=== PATIENT | female | born 1945 | race African-American/Black ===

== ENCOUNTER 2017-01-02 12:04 | Emergency (ER) | payer MEDICARE, BC ==
[~2017-01-02] VITALS: Ht 165.1 cm; Wt 68.0 kg
[~2017-01-02 12:04] MED LIST: ASPI-785; AZAT50TA24; HYDR-3735; HYDR1TAB4; SULF500T4
[2017-01-02] MEDS ORDERED: MORPHINE SULFATE 2 MG/ML CPJ (NOT FOR IM USE) IV ONE ×3 (13:00→18:15)
[2017-01-02] MEDS ORDERED: ONDANSETRON HCL 4MG/2ML VIAL IV ONE (13:00)
[2017-01-02] MEDS ORDERED: MORPHINE SULFATE 4 MG/ML CPJ (NOT FOR IM USE) IV ONE ×2 (14:45→16:15)
[2017-01-02 18:49] VITALS: BP 124/66
== END 2017-01-02 19:41 | disposition short-term general hospital (02) ==
LOC: ER 12:08
DX: S32.492A Other specified fracture of left acetabulum, initial encounter for closed fracture (principal); S32.592A Other specified fracture of left pubis, initial encounter for closed fracture; I10 Essential (primary) hypertension; I51.9 Heart disease, unspecified; Z96.659 Presence of unspecified artificial knee joint; Z79.82 Long term (current) use of aspirin; V43.52XA Car driver injured in collision with other type car in traffic accident, initial encounter; Y93.89 Activity, other specified; Y92.488 Other paved roadways as the place of occurrence of the external cause
CPT/HCPCS: 72125; 73522; 73560; 93005; 96374; 96375; 96376; 99285; C1893; J2270; J2405

== ENCOUNTER 2017-02-16 18:24 | Inpatient (IN) | payer MEDICARE, BC ==
[~2017-02-16] VITALS: Ht 165.1 cm; Wt 72.1 kg
[~2017-02-16 18:24] MED LIST changes: +AMLO5TAB4 PO; +ASPI-1159 PO; +GABA-531 PO
[2017-02-16] MEDS ORDERED: NA PHOS,M-B/NA PHOS,DI-BA ENEMA 118ML PR PRN (18:45)
[2017-02-16] MEDS ORDERED: IPRATROPIUM/ALBUTEROL 0.5-3(2.5)MG/3ML NEB HHN PRN (18:45)
[2017-02-16] MEDS ORDERED: DIPHENHYDRAMINE 50MG/ML VIAL IV PRN (18:45)
[2017-02-16] MEDS ORDERED: ONDANSETRON HCL 4MG/2ML VIAL IV PRN (18:55)
[2017-02-16] MEDS ORDERED: CLONIDINE 0.1MG TABLET PO PRN (19:45)
[2017-02-16] MEDS: PHENYTOIN SODIUM EXTENDED 100MG CAPSULE PO SCH (21:42)
[2017-02-16] MEDS: HYDROCODONE/APAP 7.5/325MG 1 TAB TABLET PO PRN (21:48)
[2017-02-17] MEDS: PHENYTOIN SODIUM EXTENDED 100MG CAPSULE PO SCH ×3 (05:21→21:03)
[2017-02-17] MEDS: HYDROCODONE/APAP 7.5/325MG 1 TAB TABLET PO PRN ×3 (06:24→20:03)
[2017-02-18 03:36] LABS: CLARITY URINE CLOUDY (CLEAR); COLOR URINE YELLOW (YELLOW); KETONES URINE NEGATIVE (NEGATIVE); LEUKOCYTE ESTERASE URINE 3+ (NEGATIVE); NITRITE URINE POSITIVE (NEGATIVE); OCCULT BLOOD URINE 1+ (NEGATIVE); PROTEIN URINE NEGATIVE (NEGATIVE); SPECIFIC GRAVITY URINE 1.011 (1.005-1.030); UROBILINOGEN URINE 0.2 E.U./dL (0.2-1.0)
[2017-02-18] MEDS: PHENYTOIN SODIUM EXTENDED 100MG CAPSULE PO SCH (05:32)
[2017-02-18] MEDS: HYDROCODONE/APAP 7.5/325MG 1 TAB TABLET PO PRN ×2 (05:36→12:21)
[2017-02-18] MEDS: LACTULOSE 20G/30ML UDC PO SCH ×3 (13:58→21:00)
[2017-02-18] MEDS: ACETAMINOPHEN 500MG TABLET PO SCH ×2 (13:58→18:24)
[2017-02-18] MEDS: LEVOFLOXACIN 500MG TABLET PO SCH (13:58)
[2017-02-18] MEDS: DOCUSATE SODIUM 100MG CAPSULE PO SCH (17:36)
[2017-02-18] MEDS: POLYETHYLENE GLYCOL 3350 (17GM) 1 DOSE PACK PO SCH (21:19)
[2017-02-18] MEDS: LEVETIRACETAM 500MG TABLET PO SCH (21:20)
[2017-02-18] MEDS: ACETAMINOPHEN 325MG TABLET PO PRN (21:23)
[2017-02-19] MEDS: ACETAMINOPHEN 500MG TABLET PO SCH ×4 (02:09→18:56)
[2017-02-19 06:42] LABS: BASOPHILS % 0.8 % (0.0-2.0); EOSINOPHILS % 4.3 % (0.0-5.0); HEMATOCRIT. 33.1 % (36.0-48.0); HEMOGLOBIN. 11.1 g/dL (12.0-16.0); LYMPHOCYTES % 20.6 % (20.0-50.0); MEAN CORPUSCULAR HEMOGLOBIN 29.6 pg (28.0-32.0); MEAN CORPUSCULAR VOLUME 88.8 fL (81.0-99.0); MEAN PLATELET VOLUME 6.8 fl (7.4-10.4); MONOCYTES % 10.5 % (2.0-8.0); NEUTROPHILS % 63.8 % (40.0-76.0); PLATELET 359 x1000/uL (130-400); RED BLOOD CELL COUNT 3.73 mill/uL (4.2-5.4); RED CELL DISTRIBUTION WIDTH 14.9 % (11.6-14.6)
[2017-02-19 08:00] LABS: FOLIC ACID (FOLATE) SERUM 9.4 ng/mL (>5.38)
[2017-02-19] MEDS: DOCUSATE SODIUM 100MG CAPSULE PO SCH ×3 (08:09→16:58)
[2017-02-19] MEDS: LEVETIRACETAM 500MG TABLET PO SCH ×2 (08:09→21:32)
[2017-02-19 08:12] LABS: CARBON DIOXIDE 29 mEq/L (21-32); CHLORIDE 100 mEq/L (98-107); PHOSPHORUS 3.8 mg/dL (2.5-4.9); TOTAL IRON BINDING CAPACITY 198 ug/dL (250-450)
[2017-02-19] MEDS: HYDROCODONE/APAP 7.5/325MG 1 TAB TABLET PO PRN ×2 (08:12→21:45)
[2017-02-19] MEDS: LEVOFLOXACIN 500MG TABLET PO SCH (10:19)
[2017-02-19] MEDS: FERROUS SULFATE 325MG TABLET PO SCH ×2 (13:35→16:58)
[2017-02-19] MEDS: OXYCODONE HCL 5MG TABLET PO SCH ×2 (13:37→16:59)
[2017-02-19] MEDS: LACTULOSE 20G/30ML UDC PO SCH ×2 (16:57→17:02)
[2017-02-19] MEDS: POLYETHYLENE GLYCOL 3350 (17GM) 1 DOSE PACK PO SCH (21:32)
[2017-02-20] MEDS: ACETAMINOPHEN 500MG TABLET PO SCH ×4 (01:36→21:34)
[2017-02-20] MEDS: OXYCODONE HCL 5MG TABLET PO SCH ×3 (09:00→16:27)
[2017-02-20] MEDS: DOCUSATE SODIUM 100MG CAPSULE PO SCH ×2 (09:30→16:24)
[2017-02-20] MEDS: LEVETIRACETAM 500MG TABLET PO SCH ×2 (09:30→21:34)
[2017-02-20] MEDS: FERROUS SULFATE 325MG TABLET PO SCH ×3 (09:30→16:24)
[2017-02-20] MEDS: ACETAMINOPHEN 325MG TABLET PO PRN (09:36)
[2017-02-20] MEDS: LEVOFLOXACIN 500MG TABLET PO SCH (11:44)
[2017-02-20] MEDS: LACTULOSE 20G/30ML UDC PO SCH (16:24)
[2017-02-20] MEDS: POLYETHYLENE GLYCOL 3350 (17GM) 1 DOSE PACK PO SCH (21:35)
[2017-02-21] MEDS: ACETAMINOPHEN 500MG TABLET PO SCH ×4 (02:54→19:00)
[2017-02-21] MEDS: LACTULOSE 20G/30ML UDC PO SCH ×3 (08:09→16:27)
[2017-02-21] MEDS: DOCUSATE SODIUM 100MG CAPSULE PO SCH ×2 (08:10→16:27)
[2017-02-21] MEDS: FERROUS SULFATE 325MG TABLET PO SCH ×3 (08:10→16:24)
[2017-02-21] MEDS: LEVETIRACETAM 500MG TABLET PO SCH ×2 (08:10→20:33)
[2017-02-21] MEDS: OXYCODONE HCL 5MG TABLET PO SCH ×3 (08:12→16:27)
[2017-02-21] MEDS: LEVOFLOXACIN 500MG TABLET PO SCH (11:56)
[2017-02-21] MEDS: POLYETHYLENE GLYCOL 3350 (17GM) 1 DOSE PACK PO SCH (20:33)
[2017-02-21] MEDS: HYDROCODONE/APAP 7.5/325MG 1 TAB TABLET PO PRN (20:35)
[2017-02-22] MEDS: ACETAMINOPHEN 500MG TABLET PO SCH ×4 (01:00→17:51)
[2017-02-22] MEDS: HYDROCODONE/APAP 7.5/325MG 1 TAB TABLET PO PRN ×2 (06:19→22:05)
[2017-02-22 06:50] LABS: BASOPHILS % 0.8 % (0.0-2.0); EOSINOPHILS % 2.8 % (0.0-5.0); HEMATOCRIT. 30.9 % (36.0-48.0); HEMOGLOBIN. 10.3 g/dL (12.0-16.0); LYMPHOCYTES % 22.2 % (20.0-50.0); MEAN CORPUSCULAR HEMOGLOBIN 29.5 pg (28.0-32.0); MEAN CORPUSCULAR VOLUME 88.8 fL (81.0-99.0); MEAN PLATELET VOLUME 6.8 fl (7.4-10.4); MONOCYTES % 10.1 % (2.0-8.0); NEUTROPHILS % 64.1 % (40.0-76.0); PLATELET 363 x1000/uL (130-400); RED BLOOD CELL COUNT 3.48 mill/uL (4.2-5.4); RED CELL DISTRIBUTION WIDTH 14.6 % (11.6-14.6)
[2017-02-22 07:15] LABS: CARBON DIOXIDE 29 mEq/L (21-32); CHLORIDE 102 mEq/L (98-107)
[2017-02-22] MEDS: DOCUSATE SODIUM 100MG CAPSULE PO SCH ×2 (11:02→17:00)
[2017-02-22] MEDS: LEVETIRACETAM 500MG TABLET PO SCH ×2 (11:03→22:02)
[2017-02-22] MEDS: LEVOFLOXACIN 500MG TABLET PO SCH (11:03)
[2017-02-22] MEDS: FERROUS SULFATE 325MG TABLET PO SCH ×3 (11:03→17:51)
[2017-02-22] MEDS: OXYCODONE HCL 5MG TABLET PO SCH ×3 (11:04→17:00)
[2017-02-22] MEDS: LACTULOSE 20G/30ML UDC PO SCH ×2 (11:04→17:00)
[2017-02-22] MEDS: NYSTATIN 100,000 UNITS/ML 5ML UDC SSW SCH ×2 (17:51→22:02)
[2017-02-22] MEDS: POLYETHYLENE GLYCOL 3350 (17GM) 1 DOSE PACK PO SCH (21:00)
[2017-02-23] MEDS: ACETAMINOPHEN 500MG TABLET PO SCH ×4 (01:00→16:58)
[2017-02-23] MEDS: NYSTATIN 100,000 UNITS/ML 5ML UDC SSW SCH ×3 (06:29→18:43)
[2017-02-23] MEDS: HYDROCODONE/APAP 7.5/325MG 1 TAB TABLET PO PRN ×3 (06:32→21:24)
[2017-02-23 08:17] LABS: 25-HYDROXY VITAMIN D3 35 ng/mL (.)
[2017-02-23] MEDS: LACTULOSE 20G/30ML UDC PO SCH ×2 (09:00→16:57)
[2017-02-23] MEDS: DOCUSATE SODIUM 100MG CAPSULE PO SCH ×2 (09:18→16:58)
[2017-02-23] MEDS: FERROUS SULFATE 325MG TABLET PO SCH ×3 (09:18→16:58)
[2017-02-23] MEDS: LEVETIRACETAM 500MG TABLET PO SCH ×2 (09:18→21:22)
[2017-02-23] MEDS: OXYCODONE HCL 5MG TABLET PO SCH ×3 (09:19→16:53)
[2017-02-23] MEDS: LEVOFLOXACIN 500MG TABLET PO SCH (11:34)
[2017-02-23] MEDS ORDERED: ERGOCALCIFEROL 50000UNITS CAPSULE PO SCH (14:00)
[2017-02-23] MEDS: POLYETHYLENE GLYCOL 3350 (17GM) 1 DOSE PACK PO SCH (21:22)
[2017-02-24] MEDS: NYSTATIN 100,000 UNITS/ML 5ML UDC SSW SCH ×4 (05:30→17:33)
[2017-02-24] MEDS: HYDROCODONE/APAP 7.5/325MG 1 TAB TABLET PO PRN ×2 (06:52→21:52)
[2017-02-24] MEDS: DOCUSATE SODIUM 100MG CAPSULE PO SCH ×2 (08:46→16:43)
[2017-02-24] MEDS: FERROUS SULFATE 325MG TABLET PO SCH ×3 (08:46→16:43)
[2017-02-24] MEDS: LACTULOSE 20G/30ML UDC PO SCH ×2 (08:46→16:48)
[2017-02-24] MEDS: LEVETIRACETAM 500MG TABLET PO SCH ×2 (08:46→21:39)
[2017-02-24] MEDS: ACETAMINOPHEN 500MG TABLET PO SCH ×3 (08:47→16:43)
[2017-02-24] MEDS: OXYCODONE HCL 5MG TABLET PO SCH ×2 (10:15→13:00)
[2017-02-24] MEDS: LEVOFLOXACIN 500MG TABLET PO SCH (10:15)
[2017-02-24] MEDS: POLYETHYLENE GLYCOL 3350 (17GM) 1 DOSE PACK PO SCH (21:00)
[2017-02-25] MEDS: HYDROCODONE/APAP 7.5/325MG 1 TAB TABLET PO PRN (04:56)
[2017-02-25] MEDS: NYSTATIN 100,000 UNITS/ML 5ML UDC SSW SCH ×3 (06:00→11:29)
[2017-02-25] MEDS: LACTULOSE 20G/30ML UDC PO SCH (08:13)
[2017-02-25] MEDS: LEVETIRACETAM 500MG TABLET PO SCH (08:15)
[2017-02-25] MEDS: FERROUS SULFATE 325MG TABLET PO SCH ×2 (08:15→13:12)
[2017-02-25] MEDS: ACETAMINOPHEN 500MG TABLET PO SCH ×2 (08:16→13:13)
[2017-02-25] MEDS: DOCUSATE SODIUM 100MG CAPSULE PO SCH (08:17)
[2017-02-25] MEDS: LEVOFLOXACIN 500MG TABLET PO SCH (11:28)
[2017-02-25] MEDS ORDERED: HYDROCODONE/APAP 7.5/325MG 1 TAB TABLET PO PRN (14:00)
[2017-02-25 14:11] VITALS: BP 120/71
== END 2017-02-25 14:56 | disposition home health service (06) | DRG 82 ==
PROVIDERS: ADMIT Physical Medicine & Rehabilitation Spinal Cord Injury Medicine; ATTEND Internal Medicine
DX: S06.5X9A Traumatic subdural hemorrhage with loss of consciousness of unspecified duration, initial encounter (principal); G93.40 Encephalopathy, unspecified; J96.90 Respiratory failure, unspecified, unspecified whether with hypoxia or hypercapnia; J98.11 Atelectasis; E46 Unspecified protein-calorie malnutrition; N39.0 Urinary tract infection, site not specified; I10 Essential (primary) hypertension; G89.29 Other chronic pain; R41.3 Other amnesia; F32.9 Major depressive disorder, single episode, unspecified; I25.10 Atherosclerotic heart disease of native coronary artery without angina pectoris; D50.9 Iron deficiency anemia, unspecified; R26.89 Other abnormalities of gait and mobility; B96.20 Unspecified Escherichia coli [E. coli] as the cause of diseases classified elsewhere; B96.4 Proteus (mirabilis) (morganii) as the cause of diseases classified elsewhere; Z96.652 Presence of left artificial knee joint; Z90.49 Acquired absence of other specified parts of digestive tract; Z90.11 Acquired absence of right breast and nipple; Z90.710 Acquired absence of both cervix and uterus; Z68.26 Body mass index [BMI] 26.0-26.9, adult; S32.402D Unspecified fracture of left acetabulum, subsequent encounter for fracture with routine healing; S32.82XD Multiple fractures of pelvis without disruption of pelvic ring, subsequent encounter for fracture with routine healing; S72.009D Fracture of unspecified part of neck of unspecified femur, subsequent encounter for closed fracture with routine healing; V89.2XXD Person injured in unspecified motor-vehicle accident, traffic, subsequent encounter; Z92.21 Personal history of antineoplastic chemotherapy; Z85.3 Personal history of malignant neoplasm of breast; Z80.9 Family history of malignant neoplasm, unspecified
CPT/HCPCS: 36415; 80048; 80053; 80061; 81001; 82270; 82306; 82607; 82728; 82746; 83036; 83540; 83550; 83735; 84100; 84443; 84630; 85025; 87077; 87086; 87186; 92523; 92610; 97110; 97112; 97116; 97163; 97166; 97530; 97532; 97535

== ENCOUNTER → 2017-04-21 | Outpatient (CLI) | payer MEDICARE, OTHER | END | disposition home or self-care (01) | LOC: CT 10:15 | PROVIDERS: ATTEND Neurological Surgery | DX: G31.9 Degenerative disease of nervous system, unspecified (principal) | CPT/HCPCS: 70450 ==

== ENCOUNTER 2017-08-18 16:35 | Emergency (ER) | payer MEDICARE, BC, MEDICAID, OTHER ==
[~2017-08-18] VITALS: Ht 165.1 cm; Wt 85.0 kg
[2017-08-18 16:54] VITALS: BP 124/57
== END 2017-08-18 20:09 | disposition left against medical advice (07) ==
LOC: ER 17:16
DX: Z48.01 Encounter for change or removal of surgical wound dressing (principal); Z53.21 Procedure and treatment not carried out due to patient leaving prior to being seen by health care provider

== ENCOUNTER 2017-08-20 08:22 | Emergency (ER) | payer MEDICARE, OTHER ==
[~2017-08-20] VITALS: Ht 165.1 cm; Wt 85.0 kg
[2017-08-20] MEDS ORDERED: CEPHALEXIN 500MG CAPSULE PO ONE (10:00)
[2017-08-20] MEDS ORDERED: TRAMADOL 50MG TABLET PO ONE (12:30)
[2017-08-20 13:40] VITALS: BP 142/87
== END 2017-08-20 13:46 | disposition home or self-care (01) ==
LOC: ER 08:59
DX: S70.02XA Contusion of left hip, initial encounter (principal); I10 Essential (primary) hypertension; F03.90 Unspecified dementia, unspecified severity, without behavioral disturbance, psychotic disturbance, mood disturbance, and anxiety; K59.00 Constipation, unspecified; Z96.642 Presence of left artificial hip joint; Z96.659 Presence of unspecified artificial knee joint; Z87.440 Personal history of urinary (tract) infections; X58.XXXA Exposure to other specified factors, initial encounter; Y93.89 Activity, other specified; Y92.89 Other specified places as the place of occurrence of the external cause; Y99.8 Other external cause status
CPT/HCPCS: 76857; 87070; 87077; 87186; 87205; 99285

== ENCOUNTER → 2018-01-12 | Outpatient (CLI) | payer MEDICARE, BC | END | disposition home or self-care (01) | LOC: MRI 08:22 | PROVIDERS: ATTEND Neurological Surgery | DX: M48.02 Spinal stenosis, cervical region (principal); M48.061 Spinal stenosis, lumbar region without neurogenic claudication; M47.892 Other spondylosis, cervical region; R53.1 Weakness; V29.88XD Motorcycle rider (driver) (passenger) injured in other specified transport accidents, subsequent encounter | CPT/HCPCS: 72141; 72148 ==

== ENCOUNTER → 2018-03-24 | Outpatient (CLI) | payer MEDICARE, BC | END | disposition home or self-care (01) | LOC: MRI 10:34 | PROVIDERS: ATTEND Neurological Surgery | DX: M47.892 Other spondylosis, cervical region (principal); M47.894 Other spondylosis, thoracic region; M51.24 Other intervertebral disc displacement, thoracic region | CPT/HCPCS: 72146 ==

== ENCOUNTER → 2018-04-07 | Outpatient (CLI) | payer MEDICARE, BC ==
[~2018-04-07] MED LIST changes: -AMLO5TAB4 PO; -ASPI-1159 PO; -ASPI-785; -AZAT50TA24; +DIATR MEGLU/DIATRIZOATE SOLN 120ML ONE; -GABA-531 PO; -HYDR-3735; -HYDR1TAB4; +IOHEXOL-300 100 ML BOTTLE ONE; -SULF500T4
== END | disposition home or self-care (01) ==
LOC: CT 09:15
PROVIDERS: ATTEND Internal Medicine Gastroenterology
DX: K59.00 Constipation, unspecified (principal); R14.2 Eructation
CPT/HCPCS: 74177; Q9967; Q9963

== ENCOUNTER 2018-09-16 09:27 | Emergency (ER) | payer BC, MEDICAID, MEDICARE, OTHER ==
[~2018-09-16] VITALS: Ht 162.6 cm; Wt 61.0 kg
[2018-09-16] MEDS ORDERED: ACETAMINOPHEN 325MG TABLET PO ONE (10:00)
[2018-09-16] MEDS ORDERED: TETANUS, DIPHTHERIA, PERTUSSIS VAC/PF 0.5ML (>7YR OLD) IM ONE (10:00)
[2018-09-16 11:11] VITALS: BP 128/77
== END 2018-09-16 11:13 | disposition home or self-care (01) ==
LOC: ER 09:39
DX: S01.81XA Laceration without foreign body of other part of head, initial encounter (principal); F03.90 Unspecified dementia, unspecified severity, without behavioral disturbance, psychotic disturbance, mood disturbance, and anxiety; I11.9 Hypertensive heart disease without heart failure; K50.90 Crohn's disease, unspecified, without complications; Z96.649 Presence of unspecified artificial hip joint; Z96.659 Presence of unspecified artificial knee joint; Z87.828 Personal history of other (healed) physical injury and trauma; W22.09XA Striking against other stationary object, initial encounter; Y93.89 Activity, other specified; Y92.018 Other place in single-family (private) house as the place of occurrence of the external cause
CPT/HCPCS: 12001; 90471; 90715; 99284

== ENCOUNTER → 2019-10-17 | Outpatient (CLI) | payer MEDICARE, BC | END | disposition home or self-care (01) | LOC: MRI 08:33 | PROVIDERS: ATTEND Neurological Surgery | DX: M51.26 Other intervertebral disc displacement, lumbar region (principal); M48.061 Spinal stenosis, lumbar region without neurogenic claudication; M12.88 Other specific arthropathies, not elsewhere classified, other specified site; M41.86 Other forms of scoliosis, lumbar region; M48.02 Spinal stenosis, cervical region | CPT/HCPCS: 72141; 72148 ==

== ENCOUNTER → 2019-11-02 | Outpatient (CLI) | payer MEDICARE, BC | END | disposition home or self-care (01) | LOC: MRI 09:57 | PROVIDERS: ATTEND Psychiatry & Neurology Neurology | DX: S06.5X9A Traumatic subdural hemorrhage with loss of consciousness of unspecified duration, initial encounter (principal); X58.XXXA Exposure to other specified factors, initial encounter; Y93.89 Activity, other specified; Y92.89 Other specified places as the place of occurrence of the external cause; Y99.8 Other external cause status | CPT/HCPCS: 70544; 70553 ==